=== PATIENT | male | born 1965 | race Caucasian/White ===

== ENCOUNTER 2023-12-28 18:25 | Emergency (ER) | payer OTHER, SELFPAY ==
[2023-12-28 18:40] VITALS: BP 191/92; PULSE 74; RESP 17; TEMP 36.6; O2SAT 97; BMI 28.2
--- NOTE | 2023-12-28 18:47 | DI.RAD.S_ITS ---
PROCEDURE: XR SHOULDER LT MIN 2V INDICATIONS: pain TECHNIQUE: 3 views of the shoulder were acquired. COMPARISON: None. FINDINGS: Bones: Mild acromioclavicular and glenohumeral degenerative changes. No acute displaced fracture or dislocation. Soft tissues: No suspicious calcifications. IMPRESSION: No acute radiographic abnormality. Mild degenerative changes. If there is high concern for further derangement, consider MRI evaluation. Dictated by: Trae Hutson M.D. on 12/28/2023 at 19:26 Approved by: Trae Hutson M.D. on 12/28/2023 at 19:27
--- NOTE | 2023-12-28 18:50 | EKG_ITS ---
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
[2023-12-28] MEDS: KETOROLAC 30 MG/ML VIAL 15 MG IV (21:27)
[2023-12-28 21:34] LABS: Add Manual Diff / Slide Review NO; Basophils Absolute Auto 100 /uL (0-100); Basophils Percent Auto 0.4 % (0-2); Eosinophils Absolute Auto 100 /uL (0-450); Hematocrit 37.1 % (41-53); Hemoglobin 13.3 g/dL (13.5-17.5); Lymphocytes Absolute Auto 900 /uL (1100-4500); Lymphocytes Percent Auto 7.1 % (25-40); Mean Corpuscular HGB Conc 35.8 % (30-36); Mean Corpuscular Hemoglobin 33.6 PG (26-34); Mean Corpuscular Volume 93.9 fL (80-100); Monocytes Absolute Auto 1100 /uL (0-900); Monocytes Percent Auto 8.7 % (3-14); Neutrophils Absolute Auto 10900 /uL (1500-7000); Neutrophils Percent Auto 82.8 % (50-75); Platelet Count 133 X10^3/uL (150-400); Red Blood Cell Count 3.95 X10^6/uL (4.5-5.9); Red Cell Distribution Width 12.8 % (11.6-14.8); White Blood Cell Count 13.1 X10^3/uL (4.5-11.0)
[2023-12-28 21:46] LABS: Alanine Aminotransferase 32 IU/L (<50); Albumin 4.3 g/dL (3.5-5.0); Albumin Globulin Ratio 1.4 (1.0-2.8); Alkaline Phosphatase 85 U/L (38-126); Aspartate Aminotransferase 26 IU/L (17-59); BUN Creatinine Ratio 18.9 (6-22); Blood Urea Nitrogen 18 mg/dL (9-20); Carbon Dioxide 20 mmol/L (22-32); Chloride 103 mmol/L (98-107); Estimated Glomerular Filt Rate > 60 mL/min (>60); Globulin 3.1 g/dL (1.7-4.1); Glucose 290 mg/dL (70-100); HEMOLYSIS < 15 (0-50); Potassium 3.8 mmol/L (3.4-5.1); Sodium 130 mmol/L (137-145); Total Protein 7.4 g/dL (6.3-8.2)
[2023-12-28 21:59] LABS: Troponin I < 0.012 ng/mL (0.01-0.034)
--- NOTE | 2023-12-28 22:38 | ED.EXTPRO ---
HPI - Extremity Problem General Chief complaint: Extremity Problem,Nontraumatic Stated complaint: lt shoulder/neck in pain Time Seen by Provider: 12/28/23 21:14 Source: patient Mode of arrival: Ambulatory History of Present Illness HPI Narrative: 58-year-old gentleman who states he drinks 2-3 drinks a night, still smokes a full pack of cigarettes a day no other diagnosed medical problems presents with left shoulder pain. His notes that 48 hours ago he was doing quite a bit of moderate household repairs including painting, cleaning, drooling, putting up shows etcetera. Significant use and overhead use of his left arm. No obvious trauma to the arm. He notes that 24 hours ago his shoulder was irritated but today around 4:00 p.m. became acutely painful with trapezius muscle spasm appreciated. No recent fevers, cough palpitations, diaphoresis, chest pain. He has not describing significant radicular pain but does note pain from his AC joint radiating into the deltoid area and upper chest area on the left side. Related Data Home Medications Medication Instructions Recorded Confirmed cetirizine 10 mg tablet 10 mg PO QDAYP PRN ##0 12/27/16 10/04/21 fluticasone propionate 50 1 spray intranasal QDAY ##0 12/27/16 10/04/21 mcg/actuation nasal spray,suspension (Flonase Allergy Relief) omeprazole magnesium 20 mg 20 mg PO QDAY ##0 12/27/16 12/28/23 tablet,delayed release (Prilosec OTC) Previous Rx's Medication Instructions Recorded lidocaine 5 % topical patch 1 patch topical DAILY #15 ea 12/28/23 (Lidoderm) Allergies Allergy/AdvReac Type Severity Reaction Status Date / Time No Known Allergies Allergy Uncoded 12/28/23 18:45 Review of Systems Review of Systems Narrative: Pertinent positive and negative findings as per HPI Patient History Social History Smoking Status: Current every day smoker Smoking Status: Current every day smoker alcohol intake frequency: 0-2 drinks per day Substance Use Type: does not use Exam Initial Vital Signs Initial Vital Signs: Vital Signs Temperature 98 F 12/28/23 18:40 Pulse Rate 74 12/28/23 18:40 Respiratory Rate 17 12/28/23 18:40 Blood Pressure 191/92 H 12/28/23 18:40 Pulse Oximetry 97 12/28/23 18:40 Oxygen Delivery Method Room Air 12/28/23 18:40 General: Healthy appearing, in obvious pain, holding his left arm. Able to give a complete and coherent history. Well-nourished well-developed HEENT: Moist mucous membranes, normal sclera with reactive pupils, Neck: No JVD, significant left trapezius muscle spasm. Pain is not reproduced with compression and manipulation of his cervical spine Respiratory: Lungs are clear to auscultation, no wheezing no rales no rhonchi. Full and symmetrical air movement Cardiac: Regular rate and rhythm no murmurs no bruits Abdomen: Soft, nontender, good bowel tones, no flank pain Skin: Warm and dry, no rashes Neurologic: Grossly neurologically intact with no obvious asymmetries or abnormalities Extremities: He has some fullness over the left anterior shoulder and significant tenderness over the left AC joint. There was no obvious erythema or warmth to suggest septic joint. When the joint is unloaded, pain has significantly improved, passive internal and external rotation is not tender. He is neurovascularly intact on the left arm. Psych: Cooperative, appropriate insight and affect Course Orders Ordered: ED Orders 12/28/23 18:46 EKG-12 Lead Stat 12/28/23 18:47 XR shoulder LT min 2V Stat 12/28/23 21:22 Complete Blood Count AUTO DIFF Stat Comprehensive Metabolic Panel Stat Troponin I Stat Discontinued Medications Ketorolac Tromethamine (Ketorolac 30 Mg/Ml Vial) 15 mg IV NOW ONE Stop: 12/28/23 21:15 Last Admin: 12/28/23 21:27 Dose: 15 mg Documented By: COLBY Vital Signs Vital signs: Vital Signs - 8 hr 12/28/23 18:40 Temperature 98 F Pulse Rate 74 Respiratory Rate 17 Blood Pressure 191/92 H Pulse Oximetry 97 Oxygen Delivery Method Room Air MDM - Extremity (Nontraumatic) Lab Data 12/28/23 21:22 12/28/23 21:22 Labs: Lab Results 12/28/23 Range/Units 21:22 WBC 13.1 H (4.5-11.0) X10^3/uL RBC 3.95 L (4.5-5.9) X10^6/uL Hgb 13.3 L (13.5-17.5) g/dL Hct 37.1 L (41-53) % MCV 93.9 (80-100) fL MCH 33.6 (26-34) PG MCHC 35.8 (30-36) % RDW 12.8 (11.6-14.8) % Plt Count 133 L (150-400) X10^3/uL Neut % (Auto) 82.8 H (50-75) % Lymph % (Auto) 7.1 L (25-40) % [place] % (Auto) 8.7 (3-14) % Eos % (Auto) 1.0 L (2-4) % Baso % (Auto) 0.4 (0-2) % Neut # (Auto) 78928 H (3134-3950) /uL Lymph # (Auto) 900 L (8985-1648) /uL [place] # (Auto) 1100 H (0-900) /uL Eos # (Auto) 100 (0-450) /uL Baso # (Auto) 100 (0-100) /uL Sodium 130 L (137-145) mmol/L Potassium 3.8 (3.4-5.1) mmol/L Chloride 103 (98-107) mmol/L Carbon Dioxide 20 L (22-32) mmol/L BUN 18 (9-20) mg/dL Creatinine 0.95 (0.66-1.25) mg/dL Estimated GFR > 60 (>60) mL/min BUN/Creatinine Ratio 18.9 (6-22) Glucose 290 H (70-100) mg/dL Calcium 9.0 (8.4-10.2) mg/dL Total Bilirubin 1.0 (0.2-1.3) mg/dL AST 26 (17-59) IU/L ALT 32 (<50) IU/L Alkaline Phosphatase 85 (38-126) U/L Troponin I < 0.012 (0.01-0.034) ng/mL Total Protein 7.4 (6.3-8.2) g/dL Albumin 4.3 (3.5-5.0) g/dL Globulin 3.1 (1.7-4.1) g/dL Albumin/Globulin Ratio 1.4 (1.0-2.8) MDM Narrative Medical decision making narrative: CC: Left arm pain Complicating co-morbidities: Pack-a-day smoker, blood pressure is elevated, elevated blood sugar, 2-3 drinks of alcohol daily minimal interaction with the healthcare system Data collected from: patient Differential considered: Acute coronary syndrome, septic joint, AC separation, acute trauma, radicular pain, shoulder arthritis, Exam documented above, pertinent findings include: Exam is definitely positive for pain localizing to his left AC joint and anterior deltoid area. When joint is unloaded, pain is significantly diminished. I do not suspect a septic joint. There was no significant shoulder bursitis or effusion. He does have significant left trapezius muscle spasm. Provocative maneuvers with his neck did not cause pain so I doubt that this is a neck radiculopathy. Clinically neurovascularly intact Lab Test results independently reviewed as above. Pertinent findings: CBC is notable for mild leukocytosis with 82.8% neutrophils. H and H is 13.3 and 37.1, no comparison is available. Slightly low platelet count at 133. Chemistries show a blood sugar elevated at 290, sodium corrected is 132, liver studies and remainder of electrolytes are unremarkable Troponin is unremarkable Independently reviewed EKG: Sinus rhythm at a rate of 69. Normal intervals, normal axis. No acute ischemic changes Imaging studies independently reviewed: Mild acromioclavicular and glenohumeral degenerative changes. No acute displaced fracture or dislocation. Treatments: IV Toradol, IV Dilaudid Re-evaluations: Discussion: 58-year-old man with increasing left shoulder pain. At this point I am not seeing any evidence for acute coronary syndrome, underlying pulmonary pathology, pneumothorax, acute shoulder abnormalities such as shoulder dislocation, septic joint. He is quite tender over his AC joint and with the increased activity over the weekend I suspect that he is experiencing arthritis pain in the left shoulder. I do not think that he has a cervical radiculopathy at this point. Number of other issues did come to light with evaluation, his blood pressure is elevated which certainly may simply be from pain however does not need to be further evaluated. His blood glucose was his highest to 90 and certainly does need additional evaluation. He is placed in a sling, he is neurovascularly intact pre and post placement with significant pain relief as his shoulder is elevated and any stressors or taken off of his AC joint. We will recommend ibuprofen and Tylenol, have given him 6 tablets of Percocet to take home. Recommend follow up with the primary care doctor and with Orthopedics if the pain in the shoulder continues Discharge Plan Departure Patient Disposition: Home Clinical Impression: AC (acromioclavicular) joint arthritis Qualifiers: Laterality: left Qualified Code(s): M19.012 - Primary osteoarthritis, left shoulder Acute shoulder pain Qualifiers: Laterality: left Qualified Code(s): M25.512 - Pain in left shoulder Instructions: DI for Shoulder Pain Activity Restrictions/Additional Instructions: Thank you for coming in today Your workup does not suggest infection in the shoulder joint, obvious fractures, pinched nerve in your neck, significant lung abnormalities, heart attack or heart attack like syndrome I suspect that you have irritated your shoulder and your x-ray does look like you have a moderate amount of arthritis in the AC joint. This is where your collarbone attaches to your shoulder blade, right in the area where you are most tender Using 400 mg of ibuprofen (2 [id number] pills) and 1 Tylenol every 6 hours can be very helpful in controlling pain. For severe pain you can use 400 mg of ibuprofen and 1 Percocet. I have placed a lidocaine patch over the area while in the emergency department. If this is helpful, you can fill a prescription for these I would recommend that you use the sling for the next couple of days to help reduce any pull or strain on that AC joint. Ice to the area can also be helpful With your blood work, I noticed that your blood sugar was elevated at 290. While a single blood sugar reading does not make a diagnosis of diabetes, it does make me suggest following up with your regular doctor with additional diabetic blood work and evaluation. Similarly, elevated blood pressure in the emergency department particularly when you are hurting does not give you a diagnosis of high blood pressure however, it is elevated enough that buying a blood pressure cuff and checking your blood pressures on a regular basis and reviewing with your primary care doctor is going to be recommended. You may find that a referral to physical therapy is helpful in reducing overall pain. Again please discuss this with your primary care doctor If you find that you are getting worse or develop any new symptoms, please feel free to return to the emergency department for further evaluation. Prescriptions: New lidocaine [Lidoderm] 5 % adhesive patch,medicated 1 patch topical DAILY Qty: 15 2RF Rx Instructions: leave on most painful area for up to 12 hrs No Action cetirizine 10 MG tablet 10 mg PO QDAYP PRNQty: 0 omeprazole magnesium [Prilosec OTC] 20 MG tablet,delayed release (DR/EC) 20 mg PO QDAY Qty: 0 fluticasone propionate [Flonase Allergy Relief] 9.9 ML spray,suspension 1 spray Intranasal QDAY Qty: 0 Referrals: Miscellaneous,Doctor, MD [Primary Care Provider] - Stand Alone Forms: Patient Portal/API
[2023-12-28] MEDS: OXYCODONE/APAP 5/325 PREPACK 1 BOTTLE MISC (22:57)
[2023-12-28] MEDS: HYDROMORPHONE 0.5 MG INJ IV (22:57)
[2023-12-28] MEDS: LIDOCAINE 5% PATCH 1 EACH TOP (23:08)
[2023-12-28 23:20] VITALS: BP 186/86; PULSE 68; RESP 16; O2SAT 96
== END 2023-12-28 23:22 | disposition home or self-care (01) ==
PROVIDERS: Emergency Provider Emergency Medicine
DX: M19.012 Primary osteoarthritis, left shoulder (principal); M25.512 Pain in left shoulder; R07.89 Other chest pain; R79.89 Other specified abnormal findings of blood chemistry
CPT/HCPCS: 73030; 80053; 84484; 85025; 93005; 96374; 96375; 99284; J1170; J1885